=== PATIENT | male | born 1980 | race Caucasian/White ===

== ENCOUNTER 2020-07-06 09:28 | Emergency (ER) | payer MEDICAID ==
[~2020-07-06] VITALS: Ht 172.7 cm; Wt 102.4 kg
[2020-07-06] MEDS ORDERED: KETOROLAC 30MG/ML VIAL IV STA (10:26)
[2020-07-06] MEDS ORDERED: SODIUM CHLORIDE 0.9% 1,000 ML IV ONE (10:30)
[2020-07-06 11:29] LABS: BASOPHILS % 0.4 % (0.0-2.0); EOSINOPHILS % 1.4 % (0.0-5.0); HEMATOCRIT. 42.5 % (42.0-52.0); HEMOGLOBIN. 14.2 g/dL (14.0-18.0); LYMPHOCYTES % 19.7 % (20.0-50.0); MEAN CORPUSCULAR HEMOGLOBIN 28.9 pg (28.0-32.0); MEAN CORPUSCULAR VOLUME 86.4 fL (80.0-94.0); MEAN PLATELET VOLUME 9.7 fl (7.4-10.4); MONOCYTES % 8.2 % (2.0-8.0); NEUTROPHILS % 70.3 % (40.0-76.0); PLATELET 223 x1000/uL (130-400); RED BLOOD CELL COUNT 4.92 mill/uL (4.7-6.1); RED CELL DISTRIBUTION WIDTH 14.1 % (11.6-14.6)
[2020-07-06 11:35] LABS: CHLORIDE 107 mEq/L (98-107)
[2020-07-06 12:48] LABS: CLARITY URINE CLEAR (CLEAR); COLOR URINE YELLOW (YELLOW); KETONES URINE NEGATIVE (NEGATIVE); LEUKOCYTE ESTERASE URINE NEGATIVE (NEGATIVE); NITRITE URINE NEGATIVE (NEGATIVE); OCCULT BLOOD URINE 1+ (NEGATIVE); PROTEIN URINE NEGATIVE (NEGATIVE); SPECIFIC GRAVITY URINE 1.017 (1.005-1.030); UROBILINOGEN URINE 0.2 E.U./dL (0.2-1.0)
[2020-07-06 13:23] VITALS: BP 128/81
== END 2020-07-06 13:26 | disposition home or self-care (01) ==
LOC: ER 10:29
DX: N23 Unspecified renal colic (principal); N28.9 Disorder of kidney and ureter, unspecified
CPT/HCPCS: 36415; 74176; 80053; 81003; 85025; 93005; 96361; 96374; 99285; J1885; J7030